=== PATIENT | male | born 1945 | race Two or more races ===

== ENCOUNTER 2022-03-11 13:31 | Inpatient (IN) | payer OTHER ==
[2022-03-11 16:30] LABS: BASO % 0.5 % (0-2.0); EOS % 1.1 % (0-4.5); HEMATOCRIT 29.9 % (35.4-49); HEMOGLOBIN 8.8 GM/dL (11.7-16.9); LYMPH % 11.2 % (8-40); MCHC 29.4 g/dl (32.0-35.9); MEAN CELL VOLUME 53.8 fl (80-96); MEAN PLT VOLUME 8.3 fl (7.5-11.1); MONO % 9.6 % (3.8-10.2); NEUT % 77.6 % (42.8-82.8); PLATELET COUNT 253 10^3/uL (134-434); RBC 5.56 M/mm3 (4.00-5.60); RDW 22.5 % (11.9-15.9); WHITE BLOOD COUNT 12.5 K/mm3 (4.0-10.0)
[2022-03-11 16:41] LABS: MCH 15.8 pg (25.7-33.7)
[2022-03-11 16:43] LABS: INR 1.18 (0.83-1.09); PROTHROMBIN TIME (PATIENT) 13.6 SEC (9.7-13.0)
[2022-03-11 17:21] LABS: ANISOCYTOSIS 3+; MACROCYTOSIS 0; OVALOCYTE 1+; PLATELET ESTIMATE NORMAL
[2022-03-11 17:31] LABS: ALBUMIN 3.6 g/dl (3.4-5.0); CALCIUM 8.6 mg/dL (8.5-10.1)
[2022-03-11 17:32] LABS: BLOOD UREA NITROGEN 18.5 mg/dL (7-18)
[2022-03-11 17:34] LABS: CREATININE 1.2 mg/dL (0.55-1.3)
[2022-03-11 17:36] LABS: BILIRUBIN,TOTAL 0.9 mg/dL (0.2-1); TOT PROT 7.5 g/dl (6.4-8.2)
[2022-03-11 17:39] LABS: N-TERMINAL BNP 59.9 pg/ml (5-450)
[2022-03-11] MEDS ORDERED: BENZOCAINE/MENTH/CETYLPYRD CL 1 EACH LOZENGE MM PRN (20:23)
[2022-03-11] MEDS: INSULIN SLIDING SCALE (NOVOLOG) 1 VIAL SQ SCH (22:17)
[2022-03-12 04:04] VITALS: BMI 35.4
[2022-03-12] MEDS: INSULIN SLIDING SCALE (NOVOLOG) 1 VIAL SQ SCH ×4 (06:30→21:31)
[2022-03-12] MEDS: MECLIZINE HCL 25 MG TABLET (FP) PO PRN (06:36)
[2022-03-12 09:09] LABS: URINE APPEARANCE CLEAR; URINE BILIRUBIN NEGATIVE (NEGATIVE); URINE COLOR YELLOW; URINE GLUCOSE (UA) 3+ (NEGATIVE); URINE KETONE NEGATIVE (NEGATIVE); URINE LEUK ESTERASE NEGATIVE (NEGATIVE); URINE NITRITE NEGATIVE (NEGATIVE); URINE PROTEIN NEGATIVE (NEGATIVE); URINE UROBILINOGEN 0.2 mg/dL (0.2-1.0)
[2022-03-12 09:45] LABS: EOS % 1.5 % (0-4.5); HEMATOCRIT 30.6 % (35.4-49); HEMOGLOBIN 9.1 GM/dL (11.7-16.9); LYMPH % 20.6 % (8-40); MCHC 29.6 g/dl (32.0-35.9); MEAN CELL VOLUME 53.9 fl (80-96); MEAN PLT VOLUME 8.5 fl (7.5-11.1); MONO % 12.4 % (3.8-10.2); NEUT % 64.5 % (42.8-82.8); PLATELET COUNT 251 10^3/uL (134-434); RBC 5.68 M/mm3 (4.00-5.60); RDW 22.6 % (11.9-15.9); WHITE BLOOD COUNT 10.7 K/mm3 (4.0-10.0)
[2022-03-12 10:16] LABS: PHOSPHOROUS 3.6 mg/dL (2.5-4.9)
[2022-03-12 10:21] LABS: BLOOD UREA NITROGEN 17.7 mg/dL (7-18); CALCIUM 8.5 mg/dL (8.5-10.1)
[2022-03-12 10:22] LABS: MAGNESIUM 2.3 mg/dL (1.8-2.4)
[2022-03-12 10:23] LABS: CREATININE 1.1 mg/dL (0.55-1.3)
[2022-03-12] MEDS: metoPROLOL SUCCINATE 25 MG TAB.SR.24H (FP) PO SCH (11:34)
[2022-03-12] MEDS: LOSARTAN POTASSIUM 50 MG TABLET PO SCH (11:34)
[2022-03-12] MEDS: FAMOTIDINE 40 MG TABLET PO SCH (11:34)
[2022-03-12] MEDS ORDERED: REMDESIVIR 200 MG in SODIUM CHLORIDE 250 ML IVPB ONE (12:00)
[2022-03-12] MEDS ORDERED: SODIUM CHLORIDE 1,000 ML IV SCH (13:30)
[2022-03-12] MEDS: SODIUM CHLORIDE 1,000 ML IV SCH (15:53)
[2022-03-12] MEDS: ATORVASTATIN CA 20 MG TABLET (FP) PO SCH (21:31)
[2022-03-12] MEDS ORDERED: ACETAMINOPHEN 325 MG TABLET (FP) PO PRN (23:02)
[2022-03-12] MEDS ORDERED: PIPERACILLIN/TAZOB 3.375 GM 3.375 GM in DEXTROSE 5%-WATER - 50 ML IVPB ONE (23:21)
[2022-03-12] MEDS ORDERED: VANCOMYCIN 1 GM in D5W (PRE-DOCKED) 1,000 MG/250 ML IVPB ONE (23:21)
[2022-03-13] MEDS ORDERED: PIPERACILLIN/TAZOBACTAM 3.375 GM VIAL IVPB ONE (00:23)
[2022-03-13] MEDS ORDERED: DEXTROSE 5%-WATER - 50 ML IVPB ONE (00:23)
[2022-03-13] MEDS: INSULIN SLIDING SCALE (NOVOLOG) 1 VIAL SQ SCH ×4 (08:38→22:24)
[2022-03-13] MEDS: REMDESIVIR 100 MG in SODIUM CHLORIDE 250 ML IVPB SCH (10:46)
[2022-03-13] MEDS: DEXAMETHASONE SOD PHOSPHATE 10 MG/1 ML VIAL IVPUSH SCH (10:53)
[2022-03-13] MEDS: LOSARTAN POTASSIUM 50 MG TABLET PO SCH (10:54)
[2022-03-13] MEDS: metoPROLOL SUCCINATE 25 MG TAB.SR.24H (FP) PO SCH (10:54)
[2022-03-13] MEDS: FAMOTIDINE 40 MG TABLET PO SCH (10:54)
[2022-03-13 11:08] LABS: EOS % 4.2 % (0-4.5); HEMATOCRIT 28.9 % (35.4-49); HEMOGLOBIN 8.7 GM/dL (11.7-16.9); LYMPH % 25.5 % (8-40); MCH 16.1 pg (25.7-33.7); MCHC 30.2 g/dl (32.0-35.9); MEAN CELL VOLUME 53.4 fl (80-96); MEAN PLT VOLUME 8.6 fl (7.5-11.1); MONO % 18.5 % (3.8-10.2); NEUT % 50.8 % (42.8-82.8); PLATELET COUNT 206 10^3/uL (134-434); RBC 5.41 M/mm3 (4.00-5.60); RDW 21.7 % (11.9-15.9); WHITE BLOOD COUNT 7.8 K/mm3 (4.0-10.0)
[2022-03-13 11:20] LABS: CALCIUM 8.3 mg/dL (8.5-10.1)
[2022-03-13 11:21] LABS: BLOOD UREA NITROGEN 26.1 mg/dL (7-18)
[2022-03-13 11:24] LABS: CREATININE 1.4 mg/dL (0.55-1.3)
[2022-03-13] MEDS: SODIUM CHLORIDE 1,000 ML IV SCH (16:46)
[2022-03-13] MEDS ORDERED: INSULIN (NOVOLOG) ASPART 100 UNITS/ML 10ML VIAL ONE (21:38)
[2022-03-13] MEDS: ATORVASTATIN CA 20 MG TABLET (FP) PO SCH (22:34)
[2022-03-14] MEDS: INSULIN (NOVOLOG) ASPART 100 UNITS/ML 10ML VIAL SQ SCH ×3 (06:00→16:50)
[2022-03-14] MEDS: INSULIN SLIDING SCALE (NOVOLOG) 1 VIAL SQ SCH ×4 (06:01→21:57)
[2022-03-14] MEDS: LOSARTAN POTASSIUM 50 MG TABLET PO SCH (09:51)
[2022-03-14] MEDS: REMDESIVIR 100 MG in SODIUM CHLORIDE 250 ML IVPB SCH (09:52)
[2022-03-14] MEDS: FAMOTIDINE 40 MG TABLET PO SCH (09:52)
[2022-03-14] MEDS: metoPROLOL SUCCINATE 25 MG TAB.SR.24H (FP) PO SCH (09:53)
[2022-03-14] MEDS: DEXAMETHASONE SOD PHOSPHATE 10 MG/1 ML VIAL IVPUSH SCH (11:24)
[2022-03-14] MEDS: SODIUM CHLORIDE 1,000 ML IV SCH (14:44)
[2022-03-14] MEDS: MECLIZINE HCL 25 MG TABLET (FP) PO PRN (21:56)
[2022-03-14] MEDS: ATORVASTATIN CA 20 MG TABLET (FP) PO SCH (21:56)
[2022-03-14] MEDS ORDERED: INSULIN (LEVEMIR) 100 UNITS/ML UNITS SQ SCH (22:00)
[2022-03-15] MEDS: INSULIN SLIDING SCALE (NOVOLOG) 1 VIAL SQ SCH ×4 (06:24→22:20)
[2022-03-15] MEDS: INSULIN (NOVOLOG) ASPART 100 UNITS/ML 10ML VIAL SQ SCH ×3 (06:24→17:17)
[2022-03-15 09:32] LABS: ALBUMIN 3.1 g/dl (3.4-5.0); BLOOD UREA NITROGEN 26.2 mg/dL (7-18); MAGNESIUM 2.5 mg/dL (1.8-2.4)
[2022-03-15 09:35] LABS: CREATININE 1.2 mg/dL (0.55-1.3); PHOSPHOROUS 3.8 mg/dL (2.5-4.9)
[2022-03-15 09:36] LABS: TOT PROT 6.7 g/dl (6.4-8.2)
[2022-03-15 09:38] LABS: BASO % 0.8 % (0-2.0); EOS % 1.9 % (0-4.5); HEMATOCRIT 28.2 % (35.4-49); HEMOGLOBIN 8.5 GM/dL (11.7-16.9); LYMPH % 27.9 % (8-40); MCHC 30.1 g/dl (32.0-35.9); MEAN CELL VOLUME 54.6 fl (80-96); MEAN PLT VOLUME 8.2 fl (7.5-11.1); MONO % 8.1 % (3.8-10.2); NEUT % 61.3 % (42.8-82.8); PLATELET COUNT 233 10^3/uL (134-434); RBC 5.16 M/mm3 (4.00-5.60); RDW 22.6 % (11.9-15.9); WHITE BLOOD COUNT 10.4 K/mm3 (4.0-10.0)
[2022-03-15 09:39] LABS: BILIRUBIN,TOTAL 0.4 mg/dL (0.2-1)
[2022-03-15] MEDS: DEXAMETHASONE SOD PHOSPHATE 10 MG/1 ML VIAL IVPUSH SCH (10:00)
[2022-03-15] MEDS: REMDESIVIR 100 MG in SODIUM CHLORIDE 250 ML IVPB SCH (10:01)
[2022-03-15] MEDS: LOSARTAN POTASSIUM 50 MG TABLET PO SCH (10:01)
[2022-03-15] MEDS: metoPROLOL SUCCINATE 25 MG TAB.SR.24H (FP) PO SCH (10:01)
[2022-03-15] MEDS: FAMOTIDINE 40 MG TABLET PO SCH (10:01)
[2022-03-15 10:02] LABS: MCH 16.4 pg (25.7-33.7)
[2022-03-15] MEDS: SODIUM CHLORIDE 1,000 ML IV SCH (11:45)
[2022-03-15 22:06] LABS: GLIADIN ANTIBODY IGA 8 units (0-19); GLIADIN ANTIBODY IGG 2 units (0-19); TRANSGLUTAMINASE IGG 5 U/mL (0-5)
[2022-03-15] MEDS: ATORVASTATIN CA 20 MG TABLET (FP) PO SCH (22:17)
[2022-03-15] MEDS: INSULIN (LEVEMIR) 100 UNITS/ML UNITS SQ SCH (22:18)
[2022-03-16] MEDS: INSULIN (LEVEMIR) 100 UNITS/ML UNITS SQ SCH ×2 (05:59→21:52)
[2022-03-16] MEDS: INSULIN SLIDING SCALE (NOVOLOG) 1 VIAL SQ SCH ×4 (05:59→21:52)
[2022-03-16] MEDS: INSULIN (NOVOLOG) ASPART 100 UNITS/ML 10ML VIAL SQ SCH ×3 (06:00→17:14)
[2022-03-16 09:24] LABS: ALBUMIN 3.1 g/dl (3.4-5.0); BLOOD UREA NITROGEN 25.5 mg/dL (7-18); CREATININE 1.2 mg/dL (0.55-1.3)
[2022-03-16 09:25] LABS: BILIRUBIN,TOTAL 0.5 mg/dL (0.2-1); TOT PROT 6.5 g/dl (6.4-8.2)
[2022-03-16 09:26] LABS: CALCIUM 8.3 mg/dL (8.5-10.1)
[2022-03-16 09:27] LABS: MAGNESIUM 2.6 mg/dL (1.8-2.4); PHOSPHOROUS 3.4 mg/dL (2.5-4.9)
[2022-03-16 09:55] LABS: HEMATOCRIT 27.7 % (35.4-49); HEMOGLOBIN 8.2 GM/dL (11.7-16.9); MCHC 29.6 g/dl (32.0-35.9); MEAN CELL VOLUME 54.1 fl (80-96); MEAN PLT VOLUME 8.9 fl (7.5-11.1); PLATELET COUNT 231 10^3/uL (134-434); RBC 5.12 M/mm3 (4.00-5.60); RDW 22.7 % (11.9-15.9); WHITE BLOOD COUNT 11.8 K/mm3 (4.0-10.0)
[2022-03-16] MEDS: REMDESIVIR 100 MG in SODIUM CHLORIDE 250 ML IVPB SCH (10:09)
[2022-03-16 10:10] LABS: MONO % 8.1 % (3.8-10.2); NEUT % 67.3 % (42.8-82.8)
[2022-03-16] MEDS: metoPROLOL SUCCINATE 25 MG TAB.SR.24H (FP) PO SCH (10:10)
[2022-03-16] MEDS: DEXAMETHASONE SOD PHOSPHATE 10 MG/1 ML VIAL IVPUSH SCH (10:10)
[2022-03-16] MEDS: FAMOTIDINE 40 MG TABLET PO SCH (10:10)
[2022-03-16] MEDS: LOSARTAN POTASSIUM 50 MG TABLET PO SCH (10:10)
[2022-03-16] MEDS: ATORVASTATIN CA 20 MG TABLET (FP) PO SCH (21:51)
[2022-03-17] MEDS: INSULIN (LEVEMIR) 100 UNITS/ML UNITS SQ SCH (06:22)
[2022-03-17] MEDS: INSULIN SLIDING SCALE (NOVOLOG) 1 VIAL SQ SCH ×2 (06:23→11:53)
[2022-03-17] MEDS: INSULIN (NOVOLOG) ASPART 100 UNITS/ML 10ML VIAL SQ SCH ×2 (06:23→11:52)
[2022-03-17 09:08] LABS: BASO % 0.7 % (0-2.0); EOS % 0.2 % (0-4.5); HEMATOCRIT 27.9 % (35.4-49); HEMOGLOBIN 8.4 GM/dL (11.7-16.9); LYMPH % 23.7 % (8-40); MCHC 30.1 g/dl (32.0-35.9); MEAN CELL VOLUME 54.1 fl (80-96); MEAN PLT VOLUME 8.6 fl (7.5-11.1); NEUT % 66.4 % (42.8-82.8); PLATELET COUNT 267 10^3/uL (134-434); RBC 5.16 M/mm3 (4.00-5.60); RDW 22.5 % (11.9-15.9)
[2022-03-17 09:17] LABS: MCH 16.3 pg (25.7-33.7)
[2022-03-17 09:18] LABS: BLOOD UREA NITROGEN 25.6 mg/dL (7-18); CALCIUM 8.5 mg/dL (8.5-10.1); MAGNESIUM 2.4 mg/dL (1.8-2.4)
[2022-03-17 09:19] LABS: ALBUMIN 3.1 g/dl (3.4-5.0)
[2022-03-17 09:21] LABS: CREATININE 1.2 mg/dL (0.55-1.3); PHOSPHOROUS 3.1 mg/dL (2.5-4.9)
[2022-03-17 09:23] LABS: BILIRUBIN,TOTAL 0.6 mg/dL (0.2-1); TOT PROT 6.7 g/dl (6.4-8.2)
[2022-03-17] MEDS: LOSARTAN POTASSIUM 50 MG TABLET PO SCH (10:27)
[2022-03-17] MEDS: DEXAMETHASONE SOD PHOSPHATE 10 MG/1 ML VIAL IVPUSH SCH (10:27)
[2022-03-17] MEDS: metoPROLOL SUCCINATE 25 MG TAB.SR.24H (FP) PO SCH (10:28)
[2022-03-17] MEDS: FAMOTIDINE 40 MG TABLET PO SCH (10:28)
[2022-03-17 16:05] VITALS: BP 123/56; PULSE 58; TEMP 98.2
== END 2022-03-17 16:33 | disposition home or self-care (01) | DRG 177 ==
LOC: JER 13:31 → JERBED 17:46 → J8W 20:28 → OBSVTOIN 03-13 12:44
PROVIDERS: ADMIT Internal Medicine
PROC: XW033E5 Introduction of Remdesivir Anti-infective into Peripheral Vein, Percutaneous Approach, New Technology Group 5 (ICD-10-PCS; principal; 2022-03-12)
DX: U07.1 COVID-19 (principal); J12.82 Pneumonia due to coronavirus disease 2019; J96.01 Acute respiratory failure with hypoxia; I13.0 Hypertensive heart and chronic kidney disease with heart failure and stage 1 through stage 4 chronic kidney disease, or unspecified chronic kidney disease; I50.32 Chronic diastolic (congestive) heart failure; D64.9 Anemia, unspecified; R42 Dizziness and giddiness; E78.5 Hyperlipidemia, unspecified; I25.10 Atherosclerotic heart disease of native coronary artery without angina pectoris; D50.9 Iron deficiency anemia, unspecified; E66.9 Obesity, unspecified; Z68.35 Body mass index [BMI] 35.0-35.9, adult; N18.9 Chronic kidney disease, unspecified; E11.22 Type 2 diabetes mellitus with diabetic chronic kidney disease; Z79.4 Long term (current) use of insulin
CPT/HCPCS: 0241U-QW; 36415; 70450-TC; 71045-TC-FY; 71046-TC-FY; 80048; 80053; 81003; 82272; 82728; 82784; 82962; 83516; 83540; 83550; 83615; 83735; 83880; 84100; 84155; 84165; 84484; 85025; 85045; 85610; 86140; 86334; 86850; 86900; 86901; 87040; 93005; 93010; 94761; 97116-GP; 97161-GP; 99285-25; C9399; G0378; J1100